=== PATIENT | male | born 1955 | race Caucasian/White ===

== ENCOUNTER 2017-10-11 16:39 | Observation (INO) | payer MEDICARE, OTHER ==
[2017-10-11] MEDS ORDERED: NITROGLYCERIN (SL) 0.4 MG TAB SL (18:00)
[2017-10-11 18:07] LABS: ADD MAN DIFF? NO
[2017-10-11 18:08] LABS: BASOPHILS % 0.5 % (0.0-2.0); EOSINOPHILS % 0.2 % (0.0-7.0); HEMATOCRIT 41.9 % (42.0-52.0); HEMOGLOBIN 15.3 g/dl (14.0-18.0); LYMPHOCYTES # 1.1 10^3/ul (0.8-2.9); LYMPHOCYTES % 19.2 % (15.0-51.0); MEAN CORPUSCULAR HEMOGLOBIN 30.8 pg (29.0-33.0); MEAN CORPUSCULAR HGB CONC 36.5 g/dl (32.0-37.0); MEAN CORPUSCULAR VOLUME 84.3 fl (82.0-101.0); MEAN PLATELET VOLUME 9.9 fl (7.4-10.4); MONOCYTE # 0.5 10^3/ul (0.3-0.9); NEUTROPHIL # 4.1 10^3/ul (1.6-7.5); NEUTROPHILS % 70.9 % (39.0-77.0); PLATELET COUNT 185 10^3/UL (140-415); RED BLOOD COUNT 4.97 10^6/ul (4.70-6.10); RED CELL DISTRIBUTION WIDTH 12.4 % (11.5-14.5)
[2017-10-11 18:08] LABS: WHITE BLOOD COUNT 5.8 10^3/ul (4.8-10.8)
[2017-10-11] MEDS: ASPIRIN 81 MG TAB PO (18:09)
[2017-10-11] MEDS: NITROGLYCERIN 2% 1 GM OINT PKT TD (18:10)
[2017-10-11 18:27] LABS: ANION GAP 19 (8-16); BLOOD UREA NITROGEN 4 mg/dl (7-20); CALCIUM 9.3 mg/dl (8.4-10.2); CARBON DIOXIDE 24 mmol/L (21-31); CHLORIDE 101 mmol/L (97-110); CREATININE 0.58 mg/dl (0.61-1.24); GLUCOSE 106 mg/dl (70-220); POTASSIUM 3.2 mmol/L (3.5-5.1); SODIUM 141 mmol/L (135-144)
[2017-10-11 18:38] LABS: TROPONIN-I < 0.010 ng/ml (0.000-0.120)
[2017-10-11] MEDS ORDERED: ACETAMINOPHEN 325 MG TAB PO ×2 (20:00→23:00)
[2017-10-11] MEDS: MULTIVITAMINS 10 ML, THIAMINE 100 MG, FOLIC ACID 1 MG, MAGNESIUM SULFATE 2 GM in SOD CH... IV (21:06)
[2017-10-11] MEDS: ONDANSETRON 4 MG INJ IV ×2 (21:10→23:35)
[2017-10-11] MEDS: POTASSIUM CHLORIDE (SR) 20 MEQ TAB PO (21:10)
[2017-10-11] MEDS ORDERED: morphine 2 MG INJ IV (23:00)
[2017-10-11] MEDS: SOD CHLORIDE 0.9% 1,000 ML IV (23:35)
[2017-10-12 00:09] LABS: CREATINE KINASE 82 IU/L (23-200)
[2017-10-12 00:22] LABS: CK-MB 0.82 ng/ml (0.0-2.4); TROPONIN-I < 0.010 ng/ml (0.000-0.120)
[2017-10-12 00:43] LABS: TROPONIN-I < 0.010 ng/ml (0.000-0.120)
[2017-10-12] MEDS: LORAZEPAM 2 MG INJ IV ×3 (01:48→18:05)
[2017-10-12] MEDS: ONDANSETRON 4 MG INJ IV ×3 (06:38→21:50)
[2017-10-12] MEDS: METOPROLOL 25 MG TAB PO ×2 (08:22→20:14)
[2017-10-12] MEDS: THIAMINE 100 MG TAB PO (08:22)
[2017-10-12] MEDS: ASPIRIN 325 MG TAB PO (08:22)
[2017-10-12 08:31] LABS: ALANINE AMINOTRANSFERASE 50 IU/L (13-69); ALBUMIN 3.5 g/dl (3.3-4.9); ALBUMIN/GLOBULIN RATIO 1.59; ALKALINE PHOSPHATASE 55 IU/L (42-121); ANION GAP 13 (8-16); ASPARTATE AMINO TRANSFERASE 56 IU/L (15-46); BILIRUBIN,INDIRECT 0.9 mg/dl (0-1.1); BILIRUBIN,TOTAL 0.9 mg/dl (0.2-1.3); BLOOD UREA NITROGEN 6 mg/dl (7-20); CALCIUM 8.2 mg/dl (8.4-10.2); CARBON DIOXIDE 24 mmol/L (21-31); CHLORIDE 109 mmol/L (97-110); CHOL/HDL RATIO 1.9 RATIO; CHOLESTEROL 151 mg/dl (100-200); CREATINE KINASE 71 IU/L (23-200); CREATININE 0.67 mg/dl (0.61-1.24); GLUCOSE 88 mg/dl (70-220); HDL CHOLESTEROL 77 mg/dl (30-78); LDL CHOLESTEROL,CALCULATED 65 mg/dl; POTASSIUM 3.8 mmol/L (3.5-5.1); SODIUM 142 mmol/L (135-144); TOTAL PROTEIN 5.7 g/dl (6.1-8.1); TRIGLYCERIDES 47 mg/dl (0-149)
[2017-10-12 08:42] LABS: CK INDEX 0.9; CK-MB 0.61 ng/ml (0.0-2.4); TROPONIN-I < 0.010 ng/ml (0.000-0.120)
[2017-10-12] MEDS: SOD CHLORIDE 0.9% 1,000 ML IV ×2 (09:13→20:14)
[2017-10-12] MEDS: ISOSORBIDE DINITRATE 10 MG TAB PO ×2 (16:26→20:14)
[2017-10-13] MEDS: LORAZEPAM 2 MG INJ IV ×3 (00:08→20:56)
[2017-10-13] MEDS: PANTOPRAZOLE 40 MG INJ IV (06:15)
[2017-10-13] MEDS: SOD CHLORIDE 0.9% 1,000 ML IV ×2 (06:15→15:00)
[2017-10-13 07:14] LABS: TROPONIN-I < 0.010 ng/ml (0.000-0.120)
[2017-10-13 07:16] LABS: CHOLESTEROL 119 mg/dl (100-200)
[2017-10-13 07:16] LABS: CHOL/HDL RATIO 1.9 RATIO; HDL CHOLESTEROL 60 mg/dl (30-78); LDL CHOLESTEROL,CALCULATED 49 mg/dl; TRIGLYCERIDES 49 mg/dl (0-149)
[2017-10-13] MEDS: ISOSORBIDE DINITRATE 10 MG TAB PO ×3 (08:14→20:55)
[2017-10-13] MEDS: ASPIRIN 325 MG TAB PO (08:14)
[2017-10-13] MEDS: METOPROLOL 25 MG TAB PO ×2 (08:14→20:56)
[2017-10-13] MEDS: THIAMINE 100 MG TAB PO (08:14)
[2017-10-13] MEDS: MULTIVITAMINS 10 ML, THIAMINE 100 MG, FOLIC ACID 1 MG in SOD CHLORIDE 0.9% 1,000 ML IVPB (08:51)
[2017-10-13] MEDS: ONDANSETRON 4 MG INJ IV (08:59)
[2017-10-13] MEDS ORDERED: MULTIVITAMINS 10 ML, THIAMINE 100 MG, FOLIC ACID 1 MG in SOD CHLORIDE 0.9% 1,000 ML IVPB (09:00)
[2017-10-14] MEDS: SOD CHLORIDE 0.9% 1,000 ML IV ×3 (00:36→20:31)
[2017-10-14] MEDS: ONDANSETRON 4 MG INJ IV ×4 (00:42→23:26)
[2017-10-14] MEDS: LORAZEPAM 2 MG INJ IV ×3 (05:34→23:26)
[2017-10-14] MEDS: PANTOPRAZOLE 40 MG INJ IV (05:34)
[2017-10-14 07:13] LABS: ADD MAN DIFF? NO
[2017-10-14 07:18] LABS: WHITE BLOOD COUNT 5.5 10^3/ul (4.8-10.8)
[2017-10-14 07:18] LABS: BASOPHILS % 0.5 % (0.0-2.0); EOSINOPHILS # 0.1 10^3/ul (0.0-0.5); EOSINOPHILS % 1.3 % (0.0-7.0); HEMATOCRIT 36.5 % (42.0-52.0); HEMOGLOBIN 12.8 g/dl (14.0-18.0); LYMPHOCYTES # 0.8 10^3/ul (0.8-2.9); LYMPHOCYTES % 14.7 % (15.0-51.0); MEAN CORPUSCULAR HEMOGLOBIN 30.9 pg (29.0-33.0); MEAN CORPUSCULAR HGB CONC 35.1 g/dl (32.0-37.0); MEAN CORPUSCULAR VOLUME 88.2 fl (82.0-101.0); MONOCYTE # 0.6 10^3/ul (0.3-0.9); MONOCYTES % 10.2 % (0.0-11.0); NEUTROPHILS % 72.9 % (39.0-77.0); PLATELET COUNT 155 10^3/UL (140-415); RED BLOOD COUNT 4.14 10^6/ul (4.70-6.10); RED CELL DISTRIBUTION WIDTH 12.7 % (11.5-14.5)
[2017-10-14 07:42] LABS: ANION GAP 9 (8-16); BLOOD UREA NITROGEN 6 mg/dl (7-20); CALCIUM 8.6 mg/dl (8.4-10.2); CARBON DIOXIDE 28 mmol/L (21-31); CHLORIDE 104 mmol/L (97-110); CREATININE 0.63 mg/dl (0.61-1.24); GLUCOSE 86 mg/dl (70-220); POTASSIUM 3.2 mmol/L (3.5-5.1); SODIUM 138 mmol/L (135-144)
[2017-10-14] MEDS: METOPROLOL 25 MG TAB PO ×2 (08:43→20:31)
[2017-10-14] MEDS: THIAMINE 100 MG TAB PO (08:43)
[2017-10-14] MEDS: MULTIVITAMINS 10 ML, THIAMINE 100 MG, FOLIC ACID 1 MG in SOD CHLORIDE 0.9% 1,000 ML IVPB (08:43)
[2017-10-14] MEDS: ASPIRIN 325 MG TAB PO (08:43)
[2017-10-14] MEDS: ISOSORBIDE DINITRATE 10 MG TAB PO ×3 (08:43→20:31)
[2017-10-14] MEDS: POTASSIUM CHLORIDE (SR) 20 MEQ TAB PO (10:43)
[2017-10-15] MEDS: PANTOPRAZOLE 40 MG INJ IV (05:16)
[2017-10-15] MEDS: SOD CHLORIDE 0.9% 1,000 ML IV ×2 (05:19→16:22)
[2017-10-15] MEDS: LORAZEPAM 2 MG INJ IV (05:36)
[2017-10-15] MEDS: ONDANSETRON 4 MG INJ IV ×2 (05:36→12:45)
[2017-10-15 07:17] LABS: ADD MAN DIFF? NO
[2017-10-15 07:24] LABS: BASOPHILS % 0.7 % (0.0-2.0); EOSINOPHILS # 0.1 10^3/ul (0.0-0.5); EOSINOPHILS % 1.9 % (0.0-7.0); HEMATOCRIT 36.6 % (42.0-52.0); HEMOGLOBIN 12.8 g/dl (14.0-18.0); LYMPHOCYTES # 1.1 10^3/ul (0.8-2.9); LYMPHOCYTES % 18.6 % (15.0-51.0); MEAN CORPUSCULAR HEMOGLOBIN 30.3 pg (29.0-33.0); MEAN CORPUSCULAR VOLUME 86.5 fl (82.0-101.0); MONOCYTE # 0.8 10^3/ul (0.3-0.9); MONOCYTES % 14.2 % (0.0-11.0); NEUTROPHIL # 3.8 10^3/ul (1.6-7.5); NEUTROPHILS % 64.3 % (39.0-77.0); PLATELET COUNT 171 10^3/UL (140-415); RED BLOOD COUNT 4.23 10^6/ul (4.70-6.10); RED CELL DISTRIBUTION WIDTH 12.9 % (11.5-14.5)
[2017-10-15 07:24] LABS: WHITE BLOOD COUNT 5.9 10^3/ul (4.8-10.8)
[2017-10-15 07:44] LABS: ANION GAP 11 (8-16); BLOOD UREA NITROGEN 7 mg/dl (7-20); CALCIUM 8.8 mg/dl (8.4-10.2); CARBON DIOXIDE 26 mmol/L (21-31); CHLORIDE 106 mmol/L (97-110); GLUCOSE 92 mg/dl (70-220); POTASSIUM 3.3 mmol/L (3.5-5.1); SODIUM 140 mmol/L (135-144)
[2017-10-15] MEDS: THIAMINE 100 MG TAB PO (08:18)
[2017-10-15] MEDS: ASPIRIN 325 MG TAB PO (08:18)
[2017-10-15] MEDS: METOPROLOL 25 MG TAB PO (08:18)
[2017-10-15] MEDS: ISOSORBIDE DINITRATE 10 MG TAB PO ×2 (08:19→12:10)
[2017-10-15] MEDS: MULTIVITAMINS 10 ML, THIAMINE 100 MG, FOLIC ACID 1 MG in SOD CHLORIDE 0.9% 1,000 ML IVPB (09:12)
[2017-10-15] MEDS: POTASSIUM CHLORIDE (SR) 20 MEQ TAB PO (10:12)
[2017-10-15] MEDS: REGADENOSON 0.4 MG/5 ML SYG (11:17)
== END 2017-10-15 17:50 | disposition home or self-care (01) ==
LOC: E/R 16:39 → TEL 19:55
DX: R07.9 Chest pain, unspecified (principal); I10 Essential (primary) hypertension; I25.10 Atherosclerotic heart disease of native coronary artery without angina pectoris; E78.5 Hyperlipidemia, unspecified; Z98.61 Coronary angioplasty status; Z79.82 Long term (current) use of aspirin; F10.10 Alcohol abuse, uncomplicated
CPT/HCPCS: 36415; 71045; 78452; 80048; 80053; 80061; 82550; 82553; 84443; 84484; 85025; 93005; 93017; 93306; 99285-25; G0378